=== PATIENT | female | born 1940 | race Caucasian/White ===

== ENCOUNTER 2024-04-28 11:07 | Outpatient (CLI) | payer MEDICARE, BC, SELFPAY | END 2024-04-28 11:08 | disposition home or self-care (01) | LOC: AMB 04-30 02:44 | PROVIDERS: Visit Provider Family Medicine | DX: R55 Syncope and collapse (principal); R53.83 Other fatigue | CPT/HCPCS: A0425; A0429 ==

== ENCOUNTER 2024-04-28 11:49 | Emergency (ER) | payer MEDICARE, BC, SELFPAY ==
[2024-04-28 11:51] VITALS: BP 115/57; PULSE 52; RESP 18; TEMP 36.1; BMI 18.0
--- NOTE | 2024-04-28 12:01 | ED.GENADULT ---
HPI - General Adult General Date Seen: 04/28/24 Chief complaint: Syncope/Fainted Stated complaint: TIA symptoms Time Seen by Provider: 04/28/24 11:55 History of Present Illness HPI narrative: 84-year-old female with no previous is to [facility] but does get primary care through the [employer] system. I am not able to view her [facility] records. According to records from [facility] (which also uses [facility]) she has a past medical history of [id number] syndrome (cardiac pre-excitation), Raynaud's disease, hypercholesterolemia, degenerative joint disease, osteopenia, scoliosis, depression, anxiety, allergic rhinitis, previous hip dislocation, history of Whittaker's palsy arthritis, knee pain, peripheral artery disease. In her line of record I see that she had a arterial ultrasound of her legs done at the [facility] in January. It showed 50-75% luminal stenosis of the right proximal SFA. 20-49% stenosis of the left SFA.. She has Alzheimer's disease. She is not a reliable historian and cannot recall the event that happened this morning. History is obtained from her son. She normally lives in a memory care unit in the [facility]. About once a month she comes to stay with her son for a couple of days. She is currently visiting him. She has been healthy and normal during her visit with no symptoms. She slept until about 10:00 a.m. this morning which is her usual pattern. After that she was getting ready. She had taken her morning shower and her son was helping her put on her socks. She was sitting on a bed when she abruptly became unresponsive. She slumped forward, was drooling, and was not arousable. She was breathing. No witnessed seizure activity. Her son immediately called 911. By the time the paramedics arrived she was coming around. Blood sugar was normal. EKG showed a sinus bradycardia. Blood pressure was normal. Now that she is here in the ER she has no complaints. She had no complaints prior to the event. Son has no recollection of the rivka any previous arrhythmias or cardiac events. She does not have a pacemaker. No history of AFib. No history of CHF. She takes hydrochlorothiazide for blood pressure but no beta blockers or calcium channel blockers. Related Data Home Medications ?Medication ?Instructions ?Recorded ?Confirmed Aricept 04/28/24 Calcium + D 04/28/24 FiberCon 04/28/24 Namenda 04/28/24 Tylenol 04/28/24 Voltaren 04/28/24 duloxetine 04/28/24 hydrochlorothiazide 04/28/24 melatonin 04/28/24 multivitamin 04/28/24 Allergies Allergy/AdvReac Type Severity Reaction Status Date / Time No Known Drug Allergies Allergy Verified 04/28/24 12:05 [facility] Social History Non-prescribed substance use: denies use Exam Narrative: Exam Narrative: Constitutional: Appears well-developed and well-nourished. Alert. Conversant but cannot remember what day it is because of her dementia. She is at her baseline. She is very pleasant.. Non toxic. HENT: Head: Atraumatic. Nose: Nose normal. Mouth/Throat: Oral mucosa is clear and moist. no trismus. Pharynx normal. Tonsils symmetric. No tonsillar enlargement, erythema, or exudate. Eyes: Conjunctivae normal. EOM normal. Pupils equal, round, and reactive to light. No scleral icterus. Neck: Normal range of motion. Neck supple. No tracheal deviation present. Cardiovascular: Normal rate, regular rhythm. No gallop. No friction rub. No murmur heard. Symmetric radial artery pulses . Difficult to palpate DP pulses but she does have thready pulses in both feet. Normal bilateral lower extremity cap refill. Pulmonary/Chest: Effort normal. No stridor. No respiratory distress. No wheezes. No rales. No rhonchi . No tenderness. Abdominal: Soft. Bowel sounds normal. No distension. No mass. Epigastric tenderness. No rebound. No guarding. Musculoskeletal: RUE: Normal range of motion. No tenderness. No deformity LUE: Normal range of motion. No tenderness. No deformity RLE: Normal range of motion. No edema. No tenderness. No deformity LLE: Normal range of motion. No edema. No tenderness. No deformity Neurological: Alert and oriented to person. She is at her baseline for dementia. She has no she is in a hospital. She does not know what day of the week it is or what month it is. She recognizes her son. She is very polite and cooperative. Normal strength. CN II-VII intact. No sensory deficit. GCS eye subscore is 4. GCS verbal subscore is 5. GCS motor subscore is 6. Normal coordination Speech fluent. Cranial Nerves intact II-XII except I did not formally test gag or visual acuity. EOMI. Palate elevates symmetrically and tongue protrudes in the midline. Strength: 5/5 trapezius on the right and left 5/5 deltoid on the right and left 5/5 biceps on the right and left 5/5 triceps on the right and left 5/5 machines technician on the right and left 5/5 thumb opposition on the right and left 5/5 finger abduction on the right and left 5/5 hip flexors (L3) on the right and left 5/5 quadriceps (L4) on the right and left 5/5 tibialis anterior on the right and left 5/5 EHL (L5) on the right and left 5/5 gastrocnemius (S1) on the right and left 5/5 hamstring on the right and left Sensation intact to light touch in both upper extremities (C4-T1) Sensation intact to light touch in Both lower extremities (L4-S1). Finger to nose and coordination normal. Skin: Skin is warm and dry. No rash noted. No pallor. Normal capillary refill. Psychiatric: Normal mood. Normal affect. Const: Vital Signs, click to edit/add: Vital Signs - 24 hr 04/28/24 11:51 04/28/24 12:58 04/28/24 13:01 Temperature 96.9 F L Pulse Rate [Pulse Oximeter] 52 L Respiratory Rate 18 Blood Pressure 119/57 L 120/54 L Blood Pressure [Ri ght Upper Arm] 115/57 L Pulse Oximetry Oxygen Delivery Me thod Room Air 04/28/24 13:23 Temperature Pulse Rate [Pulse Oximeter] Respiratory Rate Blood Pressure Blood Pressure [Ri ght Upper Arm] Pulse Oximetry 95 Oxygen Delivery Me thod Room Air Course Vital Signs Vital signs: Initial Vital Signs Temperature 96.9 F L 04/28/24 11:51 Temperature Source Temporal Artery Scan 04/28/24 11:51 Pulse Rate 52 L 04/28/24 11:51 Respiratory Rate 18 04/28/24 11:51 Blood Pressure 115/57 L 04/28/24 11:51 Blood Pressure Mean 76 04/28/24 11:51 Oxygen Delivery Method Room Air 04/28/24 11:51 Vital Signs Temperature 96.9 F L 04/28/24 11:51 Pulse Rate 52 L 04/28/24 11:51 Respiratory Rate 18 04/28/24 11:51 Blood Pressure 115/57 L 04/28/24 11:51 Oxygen Delivery Method Room Air 04/28/24 11:51 Temperature 96.9 F L 04/28/24 11:51 Pulse Rate 52 L 04/28/24 11:51 Respiratory Rate 18 04/28/24 11:51 Blood Pressure 120/54 L 04/28/24 13:01 Pulse Oximetry 95 04/28/24 13:23 Oxygen Delivery Method Room Air 04/28/24 13:23 Medical Decision Making MDM Narrative Medical decision making narrative: This patient presents for evaluation of a syncopal event that occurred this morning when she was sitting on the bed while her son was helping her get dressed. Because of the patient's Alzheimer's she is not able to provide any history does not recall the event. She has no complaints here in the ER but did have epigastric tenderness on her exam. We did obtain CT scan and it confirms absence of any aortic aneurysm or any signs of any fluid collections in the abdomen/pelvis. No right upper quadrant tenderness. LFTs and lipase normal. Although gallbladder is incompletely visualized on the CT, at this point I have very low suspicion for biliary colic or cholecystitis. She is not anemic.. A broad differential was considered. No murmurs . Initial ECG shows sinus bradycardia. He she is not on any beta-blockers or other rate control agents. She has a history of LGL syndrome EKG shows normal QT, nob rugada syndrome, and no ischemia. No symptoms/findings concerning for cardiac ischemia or ACS . No headache or other neurologic symptoms to suggest subarachnoid , stroke . No reported seizure-like activity or postictal phase. school bus monitor while the patient here in the ER showed no dysrhythmia or ectopy. A broad differential diagnosis was considered including SVT, Atrial fibrillation, ventricular arrhythmia, thyroid disease, acute electrolyte abnormality, drugs/medications, medication side effect, anemia, heart disease, PE, among others. I have high suspicion that this probably was an arrhythmia. Does not sound like there was an abrupt position change to suggest orthostasis, infected occurred while she was sitting on the bed with her son helping her put her socks. Discussed options for further workup. We would consider hospitalization for cardiac monitoring, follow-up with primary to arrange outpatient contact morning, william watchful waiting at home without monitoring. Her son feels that she would not want to be in the hospital and likely would not want a pacemaker. Ultimately he prefers to just get her back to memory care unit and they will monitor her there without any further testing or hospitalization. She will follow-up with primary care as well. Lab Data Labs: Lab Results 04/28/24 04/28/24 Range/Units 13:02 13:08 WBC 7.79 (4.50-11.00) K/uL RBC 4.42 (4.00-5.20) m/uL Hgb 13.6 (12.0-16.0) gm/dL Hct 42.2 (33.0-51.0) % MCV 96 (80-100) fL MCH 31 (26-34) pg MCHC 32 (32-36) gm/dL RDW Coeff of Erasto 14.1 (11.5-15.5) % Plt Count 292 (140-440) K/uL Neut % (Auto) 80.3 H (42.0-72.0) % Lymph % (Auto) 9.1 L (20-44) % [place] % (Auto) 7.7 (0.0-11.0) % Eos % (Auto) 2.1 (0.0-7.0) % Baso % (Auto) 0.5 (0.0-3.0) % Neut # (Auto) 6.30 (1.7-7.0) K/uL Lymph # (Auto) 0.70 L (0.90-2.90) K/uL [place] # (Auto) 0.60 (0.00-0.90) K/UL Eos # (Auto) 0.16 (0.00-0.50) K/uL Baso # (Auto) 0.04 (0.00-0.30) K/uL Abs Immat Gran (auto) 0.02 (0.00-0.30) K/uL Imm/Tot Granulo (auto) 0.3 % Sodium 137 (135-149) mmol/L Potassium 4.5 (3.6-5.1) mmol/L Chloride 105 (96-114) mmol/L Carbon Dioxide 24 (20-32) mmol/L Anion Gap 8 (7-15) mEq/L BUN 28 (7-30) mg/dL Creatinine 1.2 (0.5-1.5) mg/dL Estimated Creat Clear 25.77 Estimated GFR 44 ml/min Glucose 101 (60-115) mg/dL Calcium 9.5 (8.4-10.6) mg/dL Total Bilirubin 0.9 (0.1-1.5) mg/dL AST 39 H (12-35) U/L ALT 14 (4-35) U/L Alkaline Phosphatase 83 (40-150) U/L Troponin I < 0.01 L (0.01-0.04) ng/mL Total Protein 7.4 (6.0-8.3) g/dL Albumin 4.5 (3.3-5.0) g/dL Lipase 61 (23-300) U/L POC Creatinine 1.5 H (0.6-1.3) mg/dl Imaging Data CT scan - abdomen: Attestation: I have reviewed the pertinent imaging results. Radiologist's impression: IMPRESSION: 1. Exam degraded by patient motion at the upper abdomen. This is especially limited at the level of the gallbladder. No gross pericholecystic inflammation although if there is pain localized to the right upper quadrant, ultrasound may have improved characterization in this setting. 2. Colonic diverticulosis. 3. Pancreatic atrophy with pancreatic calcifications suggesting chronic pancreatitis. ECG Data Attestation: I personally reviewed and interpreted this ECG as follows: Interpretation: Sinus bradycardia Rate: 54 VT: 134 QRS axis: Normal axis. No pathologic Q-waves. ST segment/T wave: Artifact in a leads V1-V3 but no other ST segment elevation or depression. QTc: 440 Discharge Plan Discharge Clinical Impression: Syncope Patient Disposition: Home, Self-Care Condition: Stable Instructions: Syncope (ED), Syncope in Older Adults (ED) Additional Instructions: As we discussed, please call 911 or return to the ER right away if she has any further fainting spells or dizziness or any other problems. Otherwise recheck with regular doctor within 1 week. Prescriptions: No Action Calcium + D Voltaren duloxetine FiberCon hydrochlorothiazide multivitamin Namenda Tylenol Aricept melatonin Follow Up/Referrals: Provider,Not a Local [Primary Care Provider] - Stand Alone Forms: [employer] Info Instructions
[2024-04-28 12:58] VITALS: BP 119/57
[2024-04-28 13:01] VITALS: BP 120/54
[2024-04-28 13:10] LABS: Creatinine, Point-of-Care* 1.5 mg/dl (0.6-1.3)
[2024-04-28 13:19] LABS: Basophils Absolute Auto 0.04 K/uL (0.00-0.30); Basophils Percent Auto 0.5 % (0.0-3.0); Eosinophils Absolute Auto 0.16 K/uL (0.00-0.50); Eosinophils Percent Auto 2.1 % (0.0-7.0); Hematocrit 42.2 % (33.0-51.0); Hemoglobin* 13.6 gm/dL (12.0-16.0); Immature Granulocytes Abs Auto 0.02 K/uL (0.00-0.30); Immature Granulocytes Pct Auto 0.3 %; Lymphocytes Percent Auto 9.1 % (20-44); Mean Corpuscular HGB Conc 32 gm/dL (32-36); Mean Corpuscular Hemoglobin 31 pg (26-34); Mean Corpuscular Volume 96 fL (80-100); Monocytes Percent Auto 7.7 % (0.0-11.0); Neutrophils Percent Auto 80.3 % (42.0-72.0); Platelet Count* 292 K/uL (140-440); RDW Coefficient of Variation % 14.1 % (11.5-15.5); Red Blood Count 4.42 m/uL (4.00-5.20); White Blood Count* 7.79 K/uL (4.50-11.00)
[2024-04-28 13:23] VITALS: O2SAT 95
[2024-04-28 13:26] LABS: Slide Review Reflex No
[2024-04-28 13:28] LABS: Albumin* 4.5 g/dL (3.3-5.0); Chloride* 105 mmol/L (96-114); Potassium* 4.5 mmol/L (3.6-5.1); Sodium* 137 mmol/L (135-149)
[2024-04-28 13:30] LABS: Creatinine* 1.2 mg/dL (0.5-1.5); Est. Creatinine Clearance* 25.77; Estimated Glomerular Filt Rate 44 ml/min
[2024-04-28 13:31] LABS: Alanine Aminotransferase* 14 U/L (4-35); Alkaline Phosphatase* 83 U/L (40-150); Anion Gap 8 mEq/L (7-15); Aspartate Amino Transferase* 39 U/L (12-35); Bilirubin Total* 0.9 mg/dL (0.1-1.5); Blood Urea Nitrogen* 28 mg/dL (7-30); Carbon Dioxide* 24 mmol/L (20-32); Glucose* 101 mg/dL (60-115); Lipase* 61 U/L (23-300); Total Protein* 7.4 g/dL (6.0-8.3)
[2024-04-28 13:32] LABS: Calcium* 9.5 mg/dL (8.4-10.6)
--- NOTE | 2024-04-28 13:41 | CRLHL7_ITS ---
For Patients: As a result of the 21st Century Cures Act, medical imaging exams and procedure reports are released immediately into your electronic medical record. You may view this report before your referring provider. If you have questions, please contact your health care provider. INDICATION: Syncope and epigastric pain TECHNIQUE: Axial images were obtained from the diaphragm to the pubic symphysis. Reformats were obtained in the coronal and sagittal plane. IV Contrast: None Oral Contrast: None COMPARISON: None. FINDINGS: Lower chest: Basilar discoid atelectasis. Liver: Dome of the liver is not entirely included on the exam. Minimal calcification in the liver which can be seen in prior granulomatous disease. Gallbladder and bile ducts: Motion at the upper aspect of the abdomen. No ductal dilatation or pericholecystic inflammation although this could be obscured due to the movement. Spleen: Only partially included on the examination without gross abnormality. Pancreas: Pancreatic atrophy with some pancreatic calcifications. No discrete lesion. Adrenal glands: Unremarkable. No nodules. Kidneys: Unremarkable. No masses, stones, or hydronephrosis. Vasculature: Atherosclerosis without abdominal aortic aneurysm. GI tract: The stomach is decompressed. No dilated loops of small intestine. Appendix unremarkable. Colonic diverticulosis. Pelvis: Status post hysterectomy. Bones: Status post right total hip replacement. Left hip osteoarthritis. Degenerative disc disease lumbar spine. Leftward curvature of the lumbar spine. IMPRESSION: 1. Exam degraded by patient motion at the upper abdomen. This is especially limited at the level of the gallbladder. No gross pericholecystic inflammation although if there is pain localized to the right upper quadrant, ultrasound may have improved characterization in this setting. 2. Colonic diverticulosis. 3. Pancreatic atrophy with pancreatic calcifications suggesting chronic pancreatitis. Please note that all CT scans at this facility use dose modulation, iterative reconstruction, and/or weight-based dosing when appropriate to reduce radiation dose to as low as reasonably achievable. Dictated by Theo Chavez MD @ 04/28/2024 2:14:27 PM (Electronically Signed)
[2024-04-28 13:43] LABS: Troponin I* < 0.01 ng/mL (0.01-0.04)
== END 2024-04-28 14:49 | disposition home or self-care (01) ==
PROVIDERS: Emergency Provider Emergency Medicine
DX: R55 Syncope and collapse (principal)
CPT/HCPCS: 36415; 74176; 80053; 82565; 83690; 84484; 85025; 93005; 99283; 99284; 99285